=== PATIENT | female | born 1990 | race Caucasian/White ===

== ENCOUNTER 2020-11-22 22:15 | Emergency (ER) | payer MEDICAID, OTHER ==
[~2020-11-22] VITALS: Ht 172.7 cm; Wt 61.4 kg
[~2020-11-22 22:15] MED LIST: NO HOME MEDS
[2020-11-22 22:20] VITALS: BP 144/102
[2020-11-23] MEDS ORDERED: dexamethasone sod phosphate 10mg/ml inj IM STA (00:23)
[2020-11-23] MEDS ORDERED: azithromycin 250mg tablet PO ONE (00:25)
[2020-11-23] MEDS ORDERED: diphenhydrAMINE 25 MG/10 ML UD oral solution PO ONE (00:25)
[2020-11-23] MEDS ORDERED: AZIT-63 PO (00:25)
== END 2020-11-23 00:57 | disposition home or self-care (01) ==
LOC: ER 22:16
DX: J02.9 Acute pharyngitis, unspecified (principal); F17.200 Nicotine dependence, unspecified, uncomplicated; Z79.2 Long term (current) use of antibiotics
CPT/HCPCS: 87081; 87880; 96372; 99283; J1100; Q0163